=== PATIENT | male | born 1980 | race American Indian/Alaskan Native ===

== ENCOUNTER 2019-04-01 01:26 | Emergency (ER) | payer MEDICAID, MEDICARE ==
[2019-04-01 01:56] VITALS: BP 132/87
[2019-04-01 02:58] LABS: Hematocrit 43.6 % (35.5-45.6); Hemoglobin 14.6 gm/dl (11.8-15.2); Mean Corpuscular HGB Conc 34 % (32-34); Mean Corpuscular Volume 88 fl (84-94); Platelet Count 231 K/mm3 (140-440); Red Blood Count 4.93 M/mm3 (3.65-5.03); Red Cell Distribution Width 13.7 % (13.2-15.2)
--- NOTE | 2019-04-01 03:02 | Cat Scan Report ---
PROCEDURE: CT HEAD/BRAIN WO CON TECHNIQUE: Computerized tomography of the head was performed without contrast material. CT DOSE LENGTH PRODUCT: 920.5 mGycm HISTORY: Headache and dizziness. COMPARISONS: None . FINDINGS: Skull and scalp: Extensive right craniotomy changes with resultant susceptibility artifact limits ev aluation of the frontal lobes. Paranasal sinuses: Normal . Ventricles and subarachnoid spaces: Prominent, specifically the right lateral ventricle anterior horn . Cerebrum: No evidence of hemorrhage, acute infarction or mass . Marked right frontoparietal gliosis/ volume loss and mild right anterior temporal lobe volume loss with cortical thinning/indistinctness a nd overlying dural thickening. Cerebellum and brainstem: No evidence of hemorrhage, acute infarction or mass . Vasculature: Unremarkable. IMPRESSION: 1. No acute intracranial hemorrhage or midline shift. 2. Extensive right calvarial postsurgical changes with multifocal right cerebral volume loss and isabel ical thinning/indistinctness. Superimposed acute ischemia in this location would be difficult to excl ude. If concern, dedicated MRI can further evaluate. This document is electronically signed by Amrit Cruz DO., Apr 01 2019 03:01:03 AM ET
[2019-04-01 03:05] LABS: BUN/Creatinine Ratio 16; Blood Urea Nitrogen 19 mg/dL (9-20); Calcium 8.6 mg/dL (8.4-10.2); Hemolysis Index 16
[2019-04-01] MEDS ORDERED: KEPPRA PO ONE (04:11)
[2019-04-01] MEDS ORDERED: LaMICtal PO ONE (04:41)
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
== END 2019-04-01 07:51 | disposition home or self-care (01) ==
LOC: ED 01:26
DX: G40.909 Epilepsy, unspecified, not intractable, without status epilepticus (principal); G43.909 Migraine, unspecified, not intractable, without status migrainosus; K21.9 Gastro-esophageal reflux disease without esophagitis; M19.90 Unspecified osteoarthritis, unspecified site; F17.200 Nicotine dependence, unspecified, uncomplicated
CPT/HCPCS: 36415; 70450; 80048; 85027; 99284

== ENCOUNTER 2019-06-22 20:38 | Emergency (ER) | payer MEDICAID ==
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
[2019-06-22 21:07] VITALS: BP 130/96
== END 2019-06-22 21:48 | disposition left against medical advice (07) ==
LOC: ED 20:38
DX: R51 Headache (principal); Z53.21 Procedure and treatment not carried out due to patient leaving prior to being seen by health care provider